=== PATIENT | male | born 1985 | race Caucasian/White ===

== ENCOUNTER 2021-10-03 11:42 | Inpatient (IN) | payer OTHER, MEDICAID ==
[~2021-10-03] VITALS: Ht 162.6 cm; Wt 61.7 kg
--- NOTE | 2021-10-03 11:42 | NUR ---
PT MILAGROS VIA GURNEY TO BED 12.
[2021-10-03 11:51] VITALS: BP 145/93
--- NOTE | 2021-10-03 12:03 | NUR ---
DR BYNUM AT BEDSIDE FOR EVALUATION
--- NOTE | 2021-10-03 12:07 | NUR ---
36/M MILAGROS FROM [facility] DAY PROGRAM. PER EMS STAFF CALLED 911 STATING PATIENT HAD A POSSIBLE SYNCOPAL EPISODE, STATING PATIENT FELL BACK WHILE EATING LUNCH. STATES PATIENT APPEARED TO "START SHAKING FOR A FEW SECONDS." PATIENT REPORTS 7/10 RIGHT ELBOW PAIN, DENIES HEAD OR NECK PAIN, ABRASION NOTED TO RIGHT ELBOW. PATIENT ALERT AND ORIENTED AT BASELINE, ANSWERING QUESTIONS APPROPRIATELY, ON BEDSIDE OCCUPATIONAL THERAPY ASST.
--- NOTE | 2021-10-03 13:05 | NUR ---
PER CAREGIVER AT BEDSIDE PATIENT APPEARED TO HAVE SEIZURE LIKE ACTIVITY. DR. BYNUM BEDSIDE EVALUATING PATIENT. PATIENT APPEARING CONFUSED, NOT ANSWERING QUESTIONS. OXYGEN DROPPED TO 70S, PATIENT PLACED ON NC 3L, O2 NOW 95%
[2021-10-03 13:35] LABS: BASOPHILS % (AUTO) 0.4 % (0.0-2.0); EOSINOPHILS # (AUTO) 0.1 K/uL (0-0.4); EOSINOPHILS % (AUTO) 1.3 % (0.0-4.0); HEMATOCRIT 48.3 % (36-52); HEMOGLOBIN 16.7 g/dL (12.0-18.0); LYMPHOCYTES # (AUTO) 1.6 K/uL (2.0-11.5); LYMPHOCYTES % (AUTO) 19.5 % (20.5-51.1); MEAN CORPUSCULAR HEMOGLOBIN 32 pg (27-31); MEAN CORPUSCULAR HGB CONC 35 g/dL (33-37); MEAN CORPUSCULAR VOLUME 93.4 fL (80-94); MONOCYTES # (AUTO) 0.5 K/uL (0.8-1.0); MONOCYTES % (AUTO) 6.5 % (1.7-9.3); NEUTROPHILS # (AUTO) 5.9 K/uL (1.8-7.7); NEUTROPHILS % (AUTO) 72.3 % (42.2-75.2); PLATELET COUNT (AUTO) 110 K/uL (140-450); RED BLOOD CELL COUNT(AUTO) 5.17 MIL/uL (4.20-6.10); RED CELL DISTRIBUTION WIDTH 13.2 % (11.6-13.7); WHITE BLOOD COUNT (AUTO) 8.2 K/uL (4.8-10.8)
--- NOTE | 2021-10-03 13:35 | NUR ---
FEDERICO SWAB COLLECTED AND HANDED TO MEASUREMENT OPERATOR
[2021-10-03 14:02] LABS: ALBUMIN 4.4 g/dL (3.4-5.0); ANION GAP 11.9 (8-16); CARBON DIOXIDE 30.9 mmol/L (21-32); CREATININE 0.7 mg/dL (0.6-1.3); POTASSIUM 3.8 mmol/L (3.5-5.1); TOTAL BILIRUBIN 0.7 mg/dL (0.0-1.0)
[2021-10-03] MEDS ORDERED: HYDROcodone/APAP 7.5/325 MG 1 TAB PO PRN (14:40)
[2021-10-03] MEDS ORDERED: guaiFENesin DM 200/20 MG-10 ML 10 ML UDC PO PRN (14:40)
[2021-10-03] MEDS ORDERED: DOCUSATE SODIUM 100 MG GELCAP PO PRN (14:40)
[2021-10-03] MEDS ORDERED: ONDANSETRON 4 MG/2 ML VIAL IM/IVP PRN (14:40)
[2021-10-03] MEDS ORDERED: ACETAMINOPHEN 325 MG TAB PO PRN (14:40)
[2021-10-03] MEDS ORDERED: ZOLPIDEM 5 MG TAB PO PRN (14:40)
[2021-10-03] MEDS ORDERED: LISI10TA30 PO (14:44)
[2021-10-03] MEDS ORDERED: ACET-8296 PO (15:00)
[2021-10-03] MEDS ORDERED: DOCU-300 PO (15:00)
[2021-10-03] MEDS: levETIRAcetam 500 MG TAB PO SCH ×2 (15:04→20:06)
[2021-10-03 15:22] LABS: LIPASE 58 U/L (73-393); MAGNESIUM 1.8 mg/dL (1.8-2.4); PHOSPHORUS 3.5 mg/dL (2.5-4.9)
--- NOTE | 2021-10-03 15:29 | NUR ---
Patient will be admitted to care of Dr Chua. Admited to telemetry. Will go to room 104A. Belongings list completed. Report to Archie.
[2021-10-03 15:50] VITALS: BP 141/92
--- NOTE | 2021-10-03 15:50 | NUR ---
PT BROUGHT IN BY ERNIE FROM THE ED. PT IN STABLE CONDITION ON ROOM AIR WITH CHEST RISING AND FALLING EVEN AND UNLABORED. PT AMBULATED WITH STEADY GAIT. IV TO RIGHT WRIST 20G. PT CONTINENT WITH URINAL AT BEDSIDE. PT A&OX3, UNABLE TO PROVIDE PAST MEDICAL HX. LUNG SOUNDS CLEAR, HR SOUNDS RR. VSS. SKIN INTACT. ABD DISTENDED FROM HISTORY OF [place]. NO EDEMA NOTED. +2 PEDAL PULSES. EDUCATED ON HOSPITAL SETTING AND NPO STATUS. SEIZURE AND ASPIRATION PRECAUTIONS IN PLACE. ALL SAFETY MEASURES IN PLACE, CALL LIGHT WITHIN REACH. WILL CONTINUE TO MONITOR.
--- NOTE | 2021-10-03 18:09 | NUR ---
PT STABLE IN BED WITH NO ACUTE S/S OF DISTRESS. ALL SAFETY MEASURES IN PLACE, CALL LIGHT WITHIN REACH. WILL CONTINUE TO MONITOR.
--- NOTE | 2021-10-03 18:39 | NUR ---
UA AND URINE DRUG SCREEN HAS BEEN COLLECTED. ALL SAFETY MEASURES IN PLACE, CALL LIGHT WITHIN REACH. WILL CONTINUE TO MONITOR.
--- NOTE | 2021-10-03 18:47 | NUR ---
ALL NEEDS HAVE BEEN MET THROUGHOUT THE SHIFT, PT IS STABLE. WILL BE ENDORSED TO SHAREPOINT APPLICATION ARCHITECT NURSE AT 1900. ALL SAFETY MEASURES IN PLACE, CALL LIGHT WITHIN REACH.
--- NOTE | 2021-10-03 19:31 | NUR ---
RECEIVED PT FROM MORNING SHIFT NURSE. PT IS AMBULATORY, AOX3, ABLE TO VERBALIZE NEEDS AND ABLE TO FOLLOW COMMANDS. PT IS ON NPO EXCEPT MEDS AND ON ROOM AIR. PT HAS IV ON RIGHT FOREARM GAUGE 20 SALINE LOCK. PT IS ON SEIZURE ASPIRATION PRECAUTION. ALL SAFETY MEASURES IMPLEMENTED. CALL LIGHT WITHIN REACH, BED IN LOW POSITION AND BED WHEELS LOCK.
[2021-10-03 20:00] VITALS: BP 129/92
--- NOTE | 2021-10-03 20:06 | NUR ---
SCHEDULED MEDICATION WAS GIVEN TP PER MD ORDER. PT TOLERATED IT WELL. NO S/S OF DISTRESS NOTED. CALL LIGHT WITHIN REACH AND ALL SAFETY MEASURES IMPLEMENTED.
--- NOTE | 2021-10-03 20:15 | NUR ---
PT HAS TEMPERATURE OF 99.6. COOLING MEASURES WAS GIVEN TO PT. PT TOLERATED IT WELL. CHANGED GOWN AND GAVE YELLOW SOCKS. CALL LIGHT WITHIN REACH. BED IN LOW POSITION AND ALL SAFETY MEASURES IMPLEMENTED.
--- NOTE | 2021-10-03 21:00 | NUR ---
DR. JOHNSON ASKED FOR PT MEDICATION RECONCILIATION AND HE SAID THAT NO NEW ORDER.
--- NOTE | 2021-10-03 21:01 | NUR ---
DR. JOHNSON CHANGED THE DIET INTO REGULAR. NO IV ORDER AT THIS TIME. NEW ORDER MADE AND CARRIED OUT.
--- NOTE | 2021-10-03 21:15 | NUR ---
RECHECKED ORAL TEMPERATURE AND ITS NOW 98. NO COMPLAIN OF HEADACHE OR DIZZINESS NOTED. NO S/S OF SOB/DISTRESS AND PAIN /DISCOMFORT NOTED. CALL LIGHT WITHIN REACH AND ALL SAFETY MEASURES IMPLEMENTED
--- NOTE | 2021-10-03 22:00 | NUR ---
PT STILL EATING TUNA SANDWICH, JELLO AND VANILLA PUDDING AT THIS TIME WHILE WATCHING TV. NO COMPLAIN OF PAIN VERBALIZED. CALL LIGHT WITHIN REACH AND ALL SAFETY MEASURES IMPLEMENTED.
[2021-10-03 23:07] LABS: APPEARANCE,URINE CLEAR (CLEAR); BILIRUBIN,URINE NEGATIVE (NEGATIVE); BLOOD, URINE NEGATIVE (NEGATIVE); COLOR,URINE YELLOW (YELLOW); LEUKOCYTE ESTERASE ,URINE NEGATIVE (NEGATIVE); NITRITE, URINE NEGATIVE (NEGATIVE); PH,URINE 7.5 (5.0-9.0); UGLUCOSE NEGATIVE (NEGATIVE)
[2021-10-03 23:19] LABS: BARBITURATE, URINE NEGATIVE ng/ml (NEG <=200); BENZODIAZEPINE, URINE NEGATIVE ng/mL (NEG <=200); CANNABINOID, URINE NEGATIVE ng/mL (NEG <=50); COCAINE, URINE NEGATIVE ng/mL (NEG <=300); OPIATE, URINE NEGATIVE ng/mL (NEG <=2000); PHENCYCLIDINE SCREEN,URINE NEGATIVE ng/mL (NEG <=25)
[2021-10-04] VITALS: BP 130/90
--- NOTE | 2021-10-04 | NUR ---
PT IS ASLEEP. CHEST RISE AND FALL SYMMETRICALLY NOTED SATING AT 93% WITH ST/BBB RHYTHM. CALL LIGHT WITHIN REACH AND ALL SAFETY MEASURES IMPLEMENTED.
--- NOTE | 2021-10-04 02:00 | NUR ---
PT STILL ASLEEP. CHEST RISE AND FALL SYMMETRICALLY NOTED. CALL LIGHT WITHIN REACH AND ALL SAFETY MEASURES IMPLEMENTED.
[2021-10-04 04:00] VITALS: BP 117/80
--- NOTE | 2021-10-04 04:00 | NUR ---
PT VS WHILE SLEEPING, BP- 117/80, T-97.5 P-86 R-20 SATING AT 94%. NO S/S OF RESPIRATORY DISTRESS NOTED. CALL LIGHT WITHIN REACH AND ALL SAFETY MEASURES IMPLEMENTED.
--- NOTE | 2021-10-04 07:15 | NUR ---
RECEIVED REPORT FROM REGISTERED MAIL CLERK, PT CURRENTLY SLEEPING ON BED, RESPIRATION EVEN, UNLABORED, NO DISTRESS NOTED. POINT OF CARE DISCUSSED. PT ON SEIZURE AND FALL PRECAUTION. ALL SAFETY MEASURE IN PLACE, CALL LIGHT WITHIN REACH, PENDING NEURO CONSULT. WILL CONTINUE TO MONITOR.
--- NOTE | 2021-10-04 07:29 | NUR ---
PT IS STABLE. ENDORSED PT TO MORNING SHIFT NURSE FOR CONTINUITY OF CARE.
[2021-10-04 08:00] VITALS: BP 118/82
--- NOTE | 2021-10-04 08:10 | NUR ---
PATIENT HAS BEEN SCREENED AND CATEGORIZED LOW NUTRITION RISK. PATIENT WILL BE SEEN WITHIN 7 DAYS OF ADMISSION. 10/10/[address]
[2021-10-04 08:12] LABS: BASOPHILS % (AUTO) 0.3 % (0.0-2.0); EOSINOPHILS % (AUTO) 1.3 % (0.0-4.0); HEMATOCRIT 43.8 % (36-52); HEMOGLOBIN 15.1 g/dL (12.0-18.0); MEAN CORPUSCULAR HEMOGLOBIN 32 pg (27-31); MEAN CORPUSCULAR HGB CONC 35 g/dL (33-37); MEAN CORPUSCULAR VOLUME 93.3 fL (80-94); MONOCYTES % (AUTO) 9.6 % (1.7-9.3); NEUTROPHILS # (AUTO) 6.3 K/uL (1.8-7.7); NEUTROPHILS % (AUTO) 70.8 % (42.2-75.2); PLATELET COUNT (AUTO) 100 K/uL (140-450); RED BLOOD CELL COUNT(AUTO) 4.69 MIL/uL (4.20-6.10); RED CELL DISTRIBUTION WIDTH 13.4 % (11.6-13.7)
[2021-10-04 08:13] LABS: EOSINOPHILS # (AUTO) 0.1 K/uL (0-0.4); LYMPHOCYTES # (AUTO) 1.6 K/uL (2.0-11.5); MONOCYTES # (AUTO) 0.9 K/uL (0.8-1.0)
[2021-10-04] MEDS: PANTOPRAZOLE 40 MG TABEC PO SCH (08:34)
[2021-10-04] MEDS: levETIRAcetam 500 MG TAB PO SCH ×2 (08:34→20:48)
[2021-10-04] MEDS: lisinopriL 10 MG TAB PO SCH (08:34)
--- NOTE | 2021-10-04 08:36 | NUR ---
MEDICATION ADMINISTERED AT THIS TIME. PT HAVING BREAKFAST, BROTHER SIT AT BEDSIDE. BROTHER QUESTIONING WHEN PT WILL BE GET DISCHARGE, INFORMED BROTHER PT HAS PENDING NEURO CONSULT TODAY. ALL QUESTION ANSWERED. CALL LIGHT WITHIN REACH, WILL CONTINUE TO MONITOR.
[2021-10-04 09:12] LABS: ANION GAP 11.3 (8-16); CARBON DIOXIDE 29.7 mmol/L (21-32)
[2021-10-04 09:13] LABS: CREATININE 0.6 mg/dL (0.6-1.3)
--- NOTE | 2021-10-04 10:28 | NUR ---
PT RESTING ON BED, RESPIRATION EVEN, UNLABORED, NO DISTRESS NOTED. ALL SAFETY MEASURE IN PLACE, CALL LIGHT WITHIN REACH, WILL CONTINUE TO MONITOR.
--- NOTE | 2021-10-04 11:42 | NUR ---
DC PLANN[age] YRS OLD MALE PATIENT WAS ADMITTED FROM [facility] WITH A DX OF SEIZURE. 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 CXR, HEAD CT , US CAROTID BILATERAL AND ABDOMINAL XRAY NEGATIVE. RAPID COVID TEST NEGATIVE. ADMINISTERED KEPPRA AND CONTINUED HOME MEDS. ORDERED EEG, CONSULTED WITH NEUROLOGIST DR RANDLE. ROSELYN SPOKE WITH PRIMO BACK SHOE WORKER FROM [facility] AND A BROTHER NAME ARLENE [phone] PER PRIMO PATIENT IS WITH [facility] DYER DAVID AVENDAÑO [phone] IS THE DECISION MAKER FOR ANY MEDICAL NEEDS. DC PLAN TO RETURN TO [facility] WHEN STABLE CM TO FOLLOW Addendum: 10/05/21 at 1158 by Jennifer Mendiola RN DC PLANNING: PATIENT HAS A DC ORDER WITH OUTPATIENT FOLLOW UP WITH NEUROLOGIST. CALLED PRIMO BACK SHOE WORKER STATED PATIENT HAS AN APPOINTMENT WITH NEUROLOGIST DR DELIA GALAN ON OCTOBER. PHONE NUMBER [phone] IN THE [facility]. PRIMO WILL MEDICAL STAFF SERVICES COORDINATOR PATIENT AT 4 PM. NOTIFIED ADRIENNE AVILA. ROSELYN TO FOLLOW
[2021-10-04 12:00] VITALS: BP 106/68
--- NOTE | 2021-10-04 13:32 | NUR ---
NOTIFIED DR. HESTER ABOUT THE NEW CONSULT FOR THIS PATIENT. WILL WAIT FOR DOCTOR TO SEE PATIENT.
--- NOTE | 2021-10-04 13:44 | NUR ---
PER DR. HESTER, HE STATED TO NOTIFY DR. RANDLE INSTEAD OF HIM FOR THIS CONSULT. NOTIFIED. DR. RANDLE VIA ANSWERING SERVICE.
--- NOTE | 2021-10-04 14:10 | NUR ---
SPOKE TO DR. RANDLE ON THE PHONE. INFORMED HIM ABOUT THE PT. HE ORDERED EEG VIA VERBAL ORDER. ORDER WAS PLACED.
--- NOTE | 2021-10-04 15:45 | NUR ---
PT STANDING AT BEDSIDE AND DRINKING HIS SODA, EDUCATED PT ON FALL/SEIZURE PRECAUTION, SUCH CALL FOR HELP IF FEELING DIZZY AND SIT UP ON BED FOR A MOMENT BEFORE GET UP. ALL SAFETY MEASURE IN PLACE, CALL LIGHT WITHIN REACH. WILL CONTINUE TO MONITOR.
[2021-10-04 16:00] VITALS: BP 122/71
--- NOTE | 2021-10-04 17:30 | NUR ---
PT RESTING ON BED, NO DISTRESS NOTED, ALL SAFETY MEASURE IN PLACE, CALL LIGHT WITHIN REACH, WILL CONTINUE TO MONITOR.
--- NOTE | 2021-10-04 19:38 | NUR ---
ENDORSED PT TO ACCOUNTANT TAX NURSE FOR CONTINUITY OF CARE. PT IS STABLE. PLAN OF CARE DISCUSSED.
--- NOTE | 2021-10-04 19:40 | NUR ---
RECEIVED REPORT FROM DAY SHIFT RN COLTON FOR CONTINUITY OF CARE. PT IS STABLE A&OX4. MOZAMBICAN SPEAKER BUT ABLE TO MAKE NEEDS KNOWN. DENIES PAIN. ON RM AIR/O2 WITH NO ACUTE DISTRESS. RR EVE3N AND UNLABORED WITH EQUAL CHEST RISE. GI INTACT PT'S SKIN IS INTACT. PT IS AMBULATORY AND CONTINENT. CALL LIGHT WITHIN REACH. WILL CONTINUE TO MONITOR.
--- NOTE | 2021-10-04 19:57 | NUR ---
DISREGARD THE ABOVE NOTE. WRITTEN ON WRONG PATIENT.
[2021-10-04 20:00] VITALS: BP 118/82
--- NOTE | 2021-10-04 20:00 | NUR ---
RECEIVED REPORT FROM AM NURSE FOR CONTINUITY OF CARE. PT IS STABLE. AMBULATES AND IS CONTINENT. PT HAS A SLIGHT DELAY WHEN ANSWERING QUESTIONS. DX:SEIZURES. IS ON SEIZURE PRECAUTIONS. RR EVEN AND UNLABORED WITH EQUAL CHEST RISE. IV RFA 20G S.L. FLUSHED AND PATENT. ON RM AIR NAD. ALL SAFETY MEASURES IN PLACE. CALL LIGHT WITHIN REACH. WILL CONTINUE TO MONITOR.
--- NOTE | 2021-10-04 21:00 | NUR ---
HS PARVEZ GIVEN FOR SEIZURES. EDUCATED PT RE MEDS. DENIES PAIN PT RESTING /DOZING .WILL CONTINUE WITH FREQ ROUNDS.
[2021-10-05] VITALS: BP 110/76
--- NOTE | 2021-10-05 02:30 | NUR ---
FREQ ROUNDS. CHECKED PT STABLE AND ASLEEP IN BED.RR EVEN AND UNLABORED WITH EQUAL CHEST RISE.ALL SAFETY MEASURES IN PLACE. PADDED SIDE RAILS SEIZURE PRECAUTIONS MAINTAINED. BED IN LOW AND LOCKED POSITION. WILL CONTINUE TO MONITOR.
[2021-10-05 04:00] VITALS: BP 124/87
--- NOTE | 2021-10-05 05:30 | NUR ---
FREQ ROUNDS. CHECKED PTSTABLEAND ASLEEP IN BED. RR EVEN AND UNLABORED WITH EQUAL CHEST RISE. ALL SAFETY MEASURES IN PLACE. BED IN LOW AND LOCKED POSITION. CALL LIGHT WITHIN REACH. WILL CONTINUE TO MONITOR.
[2021-10-05 07:15] LABS: ANION GAP 12.5 (8-16); BASOPHILS % (AUTO) 0.3 % (0.0-2.0); CARBON DIOXIDE 29.4 mmol/L (21-32); CREATININE 0.6 mg/dL (0.6-1.3); EOSINOPHILS # (AUTO) 0.2 K/uL (0-0.4); EOSINOPHILS % (AUTO) 2.9 % (0.0-4.0); HEMATOCRIT 44.7 % (36-52); HEMOGLOBIN 15.3 g/dL (12.0-18.0); LYMPHOCYTES # (AUTO) 1.6 K/uL (2.0-11.5); LYMPHOCYTES % (AUTO) 20.8 % (20.5-51.1); MEAN CORPUSCULAR HEMOGLOBIN 32 pg (27-31); MEAN CORPUSCULAR HGB CONC 34 g/dL (33-37); MEAN CORPUSCULAR VOLUME 93.8 fL (80-94); MONOCYTES # (AUTO) 0.8 K/uL (0.8-1.0); MONOCYTES % (AUTO) 9.6 % (1.7-9.3); NEUTROPHILS # (AUTO) 5.2 K/uL (1.8-7.7); NEUTROPHILS % (AUTO) 66.4 % (42.2-75.2); PLATELET COUNT (AUTO) 96 K/uL (140-450); POTASSIUM 3.9 mmol/L (3.5-5.1); RED BLOOD CELL COUNT(AUTO) 4.77 MIL/uL (4.20-6.10); RED CELL DISTRIBUTION WIDTH 13.4 % (11.6-13.7); WHITE BLOOD COUNT (AUTO) 7.9 K/uL (4.8-10.8)
--- NOTE | 2021-10-05 07:49 | NUR ---
RECEIVED REPORT FROM MEDICAL CLINIC MANAGER FOR CONTINUITY CARE. PT RESTING ON BED, RESPIRATION EVEN, UNLABORED, NO DISTRESS NOTED. POINT OF CARE DISCUSSED. WILL CONTINUE TO MONITOR.
[2021-10-05 08:00] VITALS: BP 128/78
[2021-10-05] MEDS: lisinopriL 10 MG TAB PO SCH (08:54)
[2021-10-05] MEDS: levETIRAcetam 500 MG TAB PO SCH (08:54)
[2021-10-05] MEDS: PANTOPRAZOLE 40 MG TABEC PO SCH (08:54)
[2021-10-05] MEDS ORDERED: [UNRECOGNIZED DRUG - CODE] PO (10:21)
[2021-10-05 12:00] VITALS: BP 115/76
[2021-10-05 14:21] VITALS: BP 115/76
[2021-10-05 16:00] VITALS: BP 122/71
--- NOTE | 2021-10-05 18:23 | NUR ---
PT IS DISCHARGING TODAY, NAVAL AIRCREWMAN MECHANICAL PRIMO ARRIVE AND STATED THEY USE [facility] FOR REFILL PT'S MEDICATION. PER RECORD, MEDICATION SEND TO [facility]. PRIMO IS ASKING IF SHE CAN HAVE THE NIGHT DOSE SEIZURE MEDICATION TAKE WITH THE PT AT THE TIME OF DISCHARGE. PER PHARMACY, OK TO GIVE TONIGHT'S DOSE SEIZURE MEDICATION TO PT AT TIME OF DISCHARGE.
--- NOTE | 2021-10-05 18:33 | NUR ---
INFORMED DR. JOHNSON THAT THE CAREGIVER AT THE BEDSIDE TO IT WEB DEVELOPMENT CONSULTANT THE PT STATED THAT THE PHARMACY WAS WRONG. PROVIDED THE CORRECT INFORMATION FOR THE PHARMACY AND ADDED IT TO THE DISCHARGE PAPERWORK. THE PHARMACY IS [facility] IN [place]. PHONE NUMBER [phone]. WILL WAIT FOR RESPONSE BACK.
--- NOTE | 2021-10-05 18:44 | NUR ---
PT DISCHARGED WITH HIS TREATING AND PUMPING SUPERVISOR PRIMO TO [facility]. DISCHARGE INSTRUCTION AND MEDICATION INSTRUCTION GIVEN AND EXPLAINED TO PT AND PT'S TREATING AND PUMPING SUPERVISOR, BOTH MAKE AWARE. PERSONAL BELONGING RETURNED. PT DISCHARGED WITHOUT ANY DISTRESS
--- NOTE | 2021-10-05 19:12 | NUR ---
SPOKE TO DR. JOHNSON AND HE STATED THE PHARMACY WAS CLOSED THEREFORE THE RX WILL BE PLACED TOMORROW MORNING.
--- NOTE | 2021-10-05 19:13 | NUR ---
ENDORSED PT TO ANCILLARY SERVICES MANAGER NURSE FOR CONTINUITY OF CARE. PT IS STABLE. PLAN OF CARE DISCUSSED.
== END 2021-10-05 18:44 | disposition home or self-care (01) | DRG 74 ==
LOC: MED 11:42 → MMU 14:41 → MTU 15:05
PROVIDERS: ADMIT Student in an Organized Health Care Education/Training Program; ATTEND Student in an Organized Health Care Education/Training Program
PROC: 4A10X4Z Monitoring of Central Nervous Electrical Activity, External Approach (ICD-10-PCS; principal; 2021-10-05)
DX: G90.8 Other disorders of autonomic nervous system (principal); G40.909 Epilepsy, unspecified, not intractable, without status epilepticus; Z20.822 Contact with and (suspected) exposure to COVID-19; I10 Essential (primary) hypertension
CPT/HCPCS: 36415; 70450; 71045; 74018; 80048; 80053; 80305; 81003; 83690; 83735; 83880; 84100; 84484; 85025; 87081; 93005; 93880; 99285; Q0092